=== PATIENT | female | born 1955 | race Caucasian/White ===

== ENCOUNTER 2019-08-31 10:32 | Emergency (ER) | payer MEDICARE ==
[~2019-08-31] VITALS: Ht 172.7 cm; Wt 76.2 kg
--- NOTE | 2019-08-31 10:40 | NUR ---
Patient to ER bed 06 to gown for evaluation. Side rails up.
[2019-08-31 10:42] VITALS: BP_SYST 168
--- NOTE | 2019-08-31 10:42 | NUR ---
Patient brought in by ambulance in the ED d/t non-med compliance per facility that started today. Patient stated that she refused the medications because it makes her dizzy and constipated. Patient denied any chest pain or shortness of breath. Denied any fevers, chills, nausea, or vomiting. Patient is alert and oriented x4, respirations even and unlabored, speaking in full sentences. VSS, pain level 0/10. Informed of approximate wait time. Instructed to notify ED staff for any changes in condition or worsening of symptoms. Patient verbalized understanding.
--- NOTE | 2019-08-31 10:43 | NUR ---
CATHY South at bedside examining patient.
--- NOTE | 2019-08-31 10:49 | NUR ---
Accucheck done by RAS [place] 167. aware.
--- NOTE | 2019-08-31 11:16 | NUR ---
[facility] called . Spoke w/ Sue from [facility]. Made [facility] aware that the pt's [facility] ([facility] called [phone] because the pt is refusing to take her medications. The pt, who is alert and oriented, reports that she has concerns regarding the side effects of these medications. 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
--- NOTE | 2019-08-31 11:31 | NUR ---
Was referred by [facility] to call [facility] . Message left at the following number.
--- NOTE | 2019-08-31 11:37 | NUR ---
Patient is resting comfortably in bed, respirations even and unlabored, and speaking in full sentences.
--- NOTE | 2019-08-31 12:06 | NUR ---
Dr. South administered all of her scheduled meds orally except for her insulin. Patient tolerated the medications well.
--- NOTE | 2019-08-31 12:54 | NUR ---
Accucheck done, 147. MD aware.
[2019-08-31 13:24] VITALS: BP_SYST 149
--- NOTE | 2019-08-31 13:30 | NUR ---
Patient given written and verbal discharge instructions and verbalizes understanding. ER MD discussed with patient the results and treatment provided. Patient in stable condition. ID arm band removed. No Rx given. Patient educated on pain management and to follow up with PMD. Pain Scale 0/10. Opportunity for questions provided and answered. Medication side effect fact sheet provided. Patient is being transported back to the [facility] facility via [facility]LS transport.
== END 2019-08-31 13:30 | disposition home or self-care (01) ==
LOC: SED 10:32
DX: Z02.89 Encounter for other administrative examinations (principal); E11.22 Type 2 diabetes mellitus with diabetic chronic kidney disease; I12.0 Hypertensive chronic kidney disease with stage 5 chronic kidney disease or end stage renal disease; N18.6 End stage renal disease
CPT/HCPCS: 82962; 99283